=== PATIENT | female | born 1970 | race Caucasian/White ===

== ENCOUNTER 2022-04-02 17:50 | Emergency (ER) ==
[~2022-04-02] VITALS: Ht 160 cm; Wt 54.5 kg
== END 2022-04-02 19:01 | disposition home or self-care (01) ==
LOC: COL.ER 17:50
DX: Z45.2 Encounter for adjustment and management of vascular access device (principal); F17.200 Nicotine dependence, unspecified, uncomplicated; Z28.310 Unvaccinated for COVID-19

== ENCOUNTER 2022-04-12 14:18 | Emergency (ER) | payer MEDICARE, MEDICAID ==
[~2022-04-12] VITALS: Ht 160 cm; Wt 54.5 kg
[2022-04-12 16:18] LABS: BASO % 0.4 % (0.0-2.0); EOS # 0.3 K/mm3 (0.0-0.7); EOS % 4.4 % (0.0-4.0); GRAN # 4.1 K/mm3 (1.4-6.5); GRAN % 53.1 % (42.2-75.2); HEMATOCRIT 39.8 % (37.0-47.0); HEMOGLOBIN 13.9 g/dl (12.5-16.0); LYMPH # 2.5 K/mm3 (1.2-3.4); LYMPH % 31.7 % (20.0-51.0); MEAN CELL VOLUME 84 fl (80.0-100.0); MEAN CORPUSCULAR HEMOGLOBIN 29 pg (27-31); MEAN CORPUSCULAR HGB CONC 35 g/dl (33.0-37.0); MEAN PLATELET VOLUME 10.2 fl (7.4-10.4); MONO # 0.8 K/mm3 (0.1-0.6); MONO % 10.3 % (1.7-9.3); PLATELET COUNT 385 K/mm3 (130-400); RED BLOOD COUNT 4.72 M/mm3 (4.10-5.30); REDCELL DISTRIBUTION WIDTH-CV 13.1 % (11.5-14.5)
[2022-04-12 16:36] LABS: ALBUMIN 3.5 gm/dL (3.5-5.0); BILIRUBIN,TOTAL 0.4 mg/dL (0.2-1.2); CALCIUM 9.4 mg/dL (8.4-10.2); CREATININE, serum 1.17 mg/dL (0.57-1.11); POTASSIUM 3.6 mmol/L (3.5-4.5); TOTAL PROTEIN 7.6 gm/dL (6.2-8.1)
[2022-04-12 16:56] LABS: TSH w REFLEX 4.276 uIU/mL (0.350-4.940)
[2022-04-12 17:10] VITALS: BP 96/73; PULSE 88; TEMP 98.4
== END 2022-04-12 17:10 | disposition home or self-care (01) ==
LOC: COL.ER 14:18
PROVIDERS: Emergency Medicine
DX: R10.13 Epigastric pain (principal); F17.200 Nicotine dependence, unspecified, uncomplicated; Z90.49 Acquired absence of other specified parts of digestive tract; Z20.822 Contact with and (suspected) exposure to COVID-19; Z28.310 Unvaccinated for COVID-19
CPT/HCPCS: J1200; J1720; J1790; J7120

== ENCOUNTER 2022-05-11 17:03 | Emergency (ER) | payer MEDICARE, MEDICAID ==
[~2022-05-11] VITALS: Ht 157.5 cm; Wt 50.9 kg
[2022-05-11 17:17] VITALS: TEMP 98.5
[2022-05-11 18:34] LABS: BASO # 0.1 K/mm3 (0.0-0.2); BASO % 0.6 % (0.0-2.0); EOS # 0.2 K/mm3 (0.0-0.7); EOS % 2.6 % (0.0-4.0); GRAN # 4.5 K/mm3 (1.4-6.5); GRAN % 53.7 % (42.2-75.2); HEMATOCRIT 37.1 % (37.0-47.0); HEMOGLOBIN 12.9 g/dl (12.5-16.0); LYMPH # 2.8 K/mm3 (1.2-3.4); LYMPH % 33.8 % (20.0-51.0); MEAN CELL VOLUME 85 fl (80.0-100.0); MEAN CORPUSCULAR HEMOGLOBIN 30 pg (27-31); MEAN CORPUSCULAR HGB CONC 35 g/dl (33.0-37.0); MONO # 0.8 K/mm3 (0.1-0.6); MONO % 9.2 % (1.7-9.3); PLATELET COUNT 412 K/mm3 (130-400); RED BLOOD COUNT 4.36 M/mm3 (4.10-5.30); REDCELL DISTRIBUTION WIDTH-CV 13.4 % (11.5-14.5)
[2022-05-11 18:50] LABS: ALBUMIN 3.6 gm/dL (3.5-5.0); ALKALINE PHOSPHATASE 64 U/L (40-150); ANION GAP 9 mmol/L (7-16); AST,SGOT 13 U/L (5-34); BILIRUBIN,TOTAL 0.3 mg/dL (0.2-1.2); BLOOD UREA NITROGEN 13 mg/dL (10-20); CALCIUM 9.2 mg/dL (8.4-10.2); CARBON DIOXIDE 25 mmol/L (22-29); CHLORIDE 101 mmol/L (98-107); CREATININE, serum 1.19 mg/dL (0.57-1.11); GLUCOSE 82 mg/dL (70-99); LIPASE 42 U/L (8-78); SODIUM 135 mmol/L (136-145); TOTAL PROTEIN 7.4 gm/dL (6.2-8.1)
[2022-05-11 18:51] LABS: ALANINE AMINOTRANSFERASE < 6 U/L (0-55)
[2022-05-11 18:56] LABS: TROPONIN-I 0.013 ng/mL (0.00-0.033)
[2022-05-11 19:02] LABS: COLLECTION METHOD CLEAN CATCH
[2022-05-11] MEDS ORDERED: REGLAN 10MG10 MG/TAB PO (19:07)
[2022-05-11 19:09] LABS: URINE APPEARANCE Clear (CLEAR/HAZY); URINE BLOOD Negative (NEGATIVE); URINE COLOR Yellow (YELLOW); URINE GLUCOSE Negative (NEGATIVE); URINE KETONE Negative (NEGATIVE); URINE NITRATE Negative (NEGATIVE); URINE PROTEIN(semi-quant) Negative (NEGATIVE); URINE UROBILINOGEN 0.2 E.U/dL (0.2-1.0)
[2022-05-11 19:21] LABS: MUCOUS Present (NOT PRESENT); SQUAMOUS EPITHELIAL None Seen /hpf (0-10); URINE BACTERIA None Seen /hpf (NONE SEEN)
[2022-05-11 19:43] VITALS: BP 90/55; PULSE 81
== END 2022-05-11 19:43 | disposition home or self-care (01) ==
LOC: COL.ER 17:03
PROVIDERS: Nurse Practitioner Primary Care
DX: R10.11 Right upper quadrant pain (principal); F17.210 Nicotine dependence, cigarettes, uncomplicated; Z90.49 Acquired absence of other specified parts of digestive tract; Z20.822 Contact with and (suspected) exposure to COVID-19; Z28.310 Unvaccinated for COVID-19
CPT/HCPCS: J1200; J2060; J2270; J7030

== ENCOUNTER 2022-07-01 12:44 | Emergency (ER) | payer MEDICARE, MEDICAID ==
[~2022-07-01] VITALS: Ht 157.5 cm; Wt 49.1 kg
[~2022-07-01 12:44] MED LIST: REGLAN 10MG10 MG/TAB PO
[2022-07-01 12:51] VITALS: TEMP 97.1
[2022-07-01 14:44] LABS: BASO % 0.6 % (0.0-2.0); EOS # 0.3 K/mm3 (0.0-0.7); EOS % 3.7 % (0.0-4.0); GRAN % 42.3 % (42.2-75.2); HEMATOCRIT 37.3 % (37.0-47.0); HEMOGLOBIN 12.7 g/dl (12.5-16.0); LYMPH # 3.1 K/mm3 (1.2-3.4); MEAN CELL VOLUME 86 fl (80.0-100.0); MEAN CORPUSCULAR HEMOGLOBIN 29 pg (27-31); MEAN CORPUSCULAR HGB CONC 34 g/dl (33.0-37.0); MEAN PLATELET VOLUME 10.6 fl (7.4-10.4); MONO # 0.7 K/mm3 (0.1-0.6); MONO % 10.3 % (1.7-9.3); PLATELET COUNT 298 K/mm3 (130-400); RED BLOOD COUNT 4.34 M/mm3 (4.10-5.30); REDCELL DISTRIBUTION WIDTH-CV 13.8 % (11.5-14.5)
[2022-07-01 14:59] LABS: ALBUMIN 3.6 gm/dL (3.5-5.0); ALKALINE PHOSPHATASE 54 U/L (40-150); ANION GAP 9 mmol/L (7-16); AST,SGOT 17 U/L (5-34); BLOOD UREA NITROGEN 10 mg/dL (10-20); CALCIUM 8.9 mg/dL (8.4-10.2); CARBON DIOXIDE 27 mmol/L (22-29); CHLORIDE 100 mmol/L (98-107); CREATININE, serum 1.23 mg/dL (0.57-1.11); GLUCOSE 90 mg/dL (70-99); POTASSIUM 3.6 mmol/L (3.5-4.5); SODIUM 136 mmol/L (136-145); TOTAL PROTEIN 7.3 gm/dL (6.2-8.1)
[2022-07-01 15:00] LABS: ALANINE AMINOTRANSFERASE < 6 U/L (0-55)
[2022-07-01 15:08] LABS: BILIRUBIN,TOTAL 0.3 mg/dL (0.2-1.2)
[2022-07-01] MEDS ORDERED: FLORINEF ACETA0.1 MG PO (15:28)
[2022-07-01] MEDS ORDERED: CYMBALTA 60MG60 MG PO (15:29)
[2022-07-01] MEDS ORDERED: TIROSINT125 MC1 PO (15:29)
[2022-07-01] MEDS ORDERED: CORTEF 10MG TAB10 MG PO (15:33)
[2022-07-01] MEDS ORDERED: PROMETHAZINE12.5 M5 PO (15:58)
[2022-07-01 16:22] VITALS: BP 98/76; PULSE 84
[2022-07-05] MEDS ORDERED: CORTEF 20MG TAB20 MG PO (16:51)
[2022-07-07] MEDS ORDERED: PROTONIX 40MG T40 MG PO (09:18)
== END 2022-07-01 16:22 | disposition home or self-care (01) ==
LOC: COL.ER 12:44
PROVIDERS: Physician Assistant
DX: A08.4 Viral intestinal infection, unspecified (principal); F17.210 Nicotine dependence, cigarettes, uncomplicated; Z28.310 Unvaccinated for COVID-19; Z20.822 Contact with and (suspected) exposure to COVID-19; Z90.49 Acquired absence of other specified parts of digestive tract; Z88.8 Allergy status to other drugs, medicaments and biological substances

== ENCOUNTER 2022-11-20 15:08 | Emergency (ER) | payer MEDICARE, MEDICAID ==
[~2022-11-20] VITALS: Ht 157.5 cm; Wt 48.8 kg
[~2022-11-20 15:08] MED LIST changes: +ASPIRIN 81M81 MG/TA2 PO; +CORTEF 10MG TAB10 MG PO; +CORTEF 20MG TAB20 MG PO; +CYMBALTA 60MG60 MG PO; +DOXYCYCLINE 10100 MG PO; +FLORINEF ACETA0.1 MG PO; +PHENERGAN 25 TA25 MG PO; +PROMETHAZINE12.5 M5 PO; +PROTONIX 40MG T40 MG PO; +TIROSINT125 MC1 PO
[2022-11-20 15:38] VITALS: BP 140/89; PULSE 103; TEMP 98.1
[2022-11-20 17:09] LABS: BASO % 0.4 % (0.0-2.0); EOS # 0.3 K/mm3 (0.0-0.7); EOS % 2.7 % (0.0-4.0); GRAN # 5.9 K/mm3 (1.4-6.5); GRAN % 64.5 % (42.2-75.2); HEMATOCRIT 38.5 % (37.0-47.0); HEMOGLOBIN 13.1 g/dl (12.5-16.0); LYMPH # 2.5 K/mm3 (1.2-3.4); LYMPH % 27.3 % (20.0-51.0); MEAN CELL VOLUME 84 fl (80.0-100.0); MEAN CORPUSCULAR HEMOGLOBIN 29 pg (27-31); MEAN CORPUSCULAR HGB CONC 34 g/dl (33.0-37.0); MEAN PLATELET VOLUME 9.6 fl (7.4-10.4); MONO # 0.5 K/mm3 (0.1-0.6); MONO % 4.9 % (1.7-9.3); PLATELET COUNT 389 K/mm3 (130-400); RED BLOOD COUNT 4.57 M/mm3 (4.10-5.30); REDCELL DISTRIBUTION WIDTH-CV 14.9 % (11.5-14.5)
[2022-11-20 17:27] LABS: ALBUMIN 3.5 gm/dL (3.5-5.0); BILIRUBIN,TOTAL 0.3 mg/dL (0.2-1.2); C-REACTIVE PROTEIN 0.16 mg/dL (0.00-0.50); CALCIUM 8.7 mg/dL (8.4-10.2); CREATININE, serum 1.07 mg/dL (0.57-1.11); POTASSIUM 4.1 mmol/L (3.5-4.5)
[2022-11-20 18:13] LABS: COLLECTION METHOD CLEAN CATCH
[2022-11-20 18:15] LABS: URINE APPEARANCE Clear (CLEAR/HAZY); URINE COLOR Yellow (YELLOW)
[2022-11-20 18:16] LABS: URINE BLOOD Negative (NEGATIVE); URINE GLUCOSE Negative (NEGATIVE); URINE KETONE Negative (NEGATIVE); URINE NITRATE Negative (NEGATIVE); URINE PROTEIN(semi-quant) Negative (NEGATIVE); URINE UROBILINOGEN 0.2 E.U/dL (0.2-1.0)
[2022-11-20 18:17] LABS: SQUAMOUS EPITHELIAL None Seen /hpf (0-10); URINE BACTERIA None Seen /hpf (NONE SEEN); URINE RBC 0-2 /hpf (0-2)
== END 2022-11-20 18:27 | disposition left against medical advice (07) ==
LOC: COL.ER 15:08
PROVIDERS: Family Medicine
DX: R51.9 Headache, unspecified (principal); E27.1 Primary adrenocortical insufficiency; F17.200 Nicotine dependence, unspecified, uncomplicated; Z86.73 Personal history of transient ischemic attack (TIA), and cerebral infarction without residual deficits; Z28.310 Unvaccinated for COVID-19
CPT/HCPCS: J1644; J2550; J2930; J7120

== ENCOUNTER 2022-12-09 07:18 | Day surgery (SDC) | payer MEDICARE, MEDICAID ==
[~2022-12-09] VITALS: Ht 157.5 cm; Wt 50.0 kg
[2022-12-09 07:47] VITALS: BP 127/67; PULSE 96; TEMP 98.4
[2022-12-09] MEDS ORDERED: NORCO 325 MG-51 TAB PO (09:15)
[2022-12-09] MEDS ORDERED: CEPHALEXIN500 M1 PO (09:15)
--- NOTE | 2022-12-09 10:29 | NUR ---
Initial visit; Patient, her son and her mother thanked [employer] Director for offering prayer for Marilyn prior to her surgical procedure. [employer] Director offered God's blessings for a successful procedure and a rapid and thorough recovery.
[2022-12-09 10:40] VITALS: BP 95/60; PULSE 76; TEMP 98.7
--- NOTE | 2022-12-09 10:40 | NUR ---
1040 PATIENT RETURNS TO ROOM 7 VIA CART. PATIENT IS ALERT AND ORIENTED. RESPIRATIONS EVEN AND UNLABORED, ON 2LPM VIA NC. VITAL SIGNS OBTAINED. PATIENT IS COMPLAINING OF SOME PAIN, BUT RCVD PRN IV PAIN MEDS IN PACU. PATIENT STATES HER PAIN IS A 3/10 AND IMPROVING. PATIENT HAS ALEXIS WRAP TO RIGHT KNEE, CDI. RLE IS ELEVATED ON PILLOW WITH ICE PRESENT. PEDAL PULSES ARE STRONG BILATERALLY. PATIENT REQUESTED A PEPSI, MUFFIN AND CHOCOLATE PUDDING. NO DIFFICULTIES SWALLOWING. PATIENT SON AND MOTHER IN ROOM. 1120 THIS NURSE REVIEWED DISCHARGE INSTRUCTIONS WITH PATIENT AND PATIENT FAMILY. BOTH VERBALIZED UNDERSTANDING. 1132 TAPAN CASTANEDA DE-ACCESSED PORT FROM LEFT CHEST. 1145 PATIENT DISCHARGES FROM UNIT VIA WHEELCHAIR IN STABLE CONDITION.
[2022-12-09 10:55] VITALS: BP 91/53; PULSE 78
[2022-12-09 11:10] VITALS: BP 93/62; PULSE 84
[2022-12-09 11:18] VITALS: TEMP 98.7
[2022-12-09 11:25] VITALS: BP 92/62; PULSE 88
--- NOTE | 2022-12-09 11:33 | NUR ---
Left chest portacath de-accessed for discharge, 500 units heparin given per order, needle intact upon removal. Pt tolerated removal well. Bandaid applied to site.
== END 2022-12-09 11:45 | disposition home or self-care (01) ==
LOC: SDCO 07:18
DX: T84.84XA Pain due to internal orthopedic prosthetic devices, implants and grafts, initial encounter (principal); Y79.3 Surgical instruments, materials and orthopedic devices (including sutures) associated with adverse incidents; M23.251 Derangement of posterior horn of lateral meniscus due to old tear or injury, right knee; F17.210 Nicotine dependence, cigarettes, uncomplicated; Z28.310 Unvaccinated for COVID-19
CPT/HCPCS: J0690; J1100; J1170; J1644; J1720; J2405; J2704; J3010; J7120

== ENCOUNTER 2023-05-29 20:22 | Observation (INO) | payer MEDICARE, MEDICAID ==
[~2023-05-29] VITALS: Ht 157.5 cm; Wt 52.2 kg
[~2023-05-29 20:22] MED LIST changes: +ANTI-DIARRHEAL2 MG PO; +BENTYL 20MG20 MG/TAB PO; +CEPHALEXIN500 M1 PO; +ELIQUIS 5MG PO; +NORCO 325 MG-51 TAB PO; +PERCOCET 325 MG1 TA2 PO; +PHENERGAN25 MG RC
[2023-05-29 21:00] LABS: BASO # 0.1 K/mm3 (0.0-0.2); BASO % 0.8 % (0.0-2.0); EOS # 0.6 K/mm3 (0.0-0.7); EOS % 6.5 % (0.0-4.0); GRAN % 44.5 % (42.2-75.2); HEMATOCRIT 41.8 % (37.0-47.0); HEMOGLOBIN 13.9 g/dl (12.5-16.0); LYMPH # 3.4 K/mm3 (1.2-3.4); LYMPH % 37.9 % (20.0-51.0); MEAN CELL VOLUME 87 fl (80.0-100.0); MEAN CORPUSCULAR HEMOGLOBIN 29 pg (27-31); MEAN CORPUSCULAR HGB CONC 33 g/dl (33.0-37.0); MEAN PLATELET VOLUME 10.2 fl (7.4-10.4); MONO # 0.9 K/mm3 (0.1-0.6); MONO % 10.1 % (1.7-9.3); PLATELET COUNT 492 K/mm3 (130-400); RED BLOOD COUNT 4.78 M/mm3 (4.10-5.30); REDCELL DISTRIBUTION WIDTH-CV 13.4 % (11.5-14.5)
[2023-05-29 21:14] LABS: ALBUMIN 3.7 gm/dL (3.5-5.0); BILIRUBIN,TOTAL 0.5 mg/dL (0.2-1.2); CALCIUM 9.8 mg/dL (8.4-10.2); CREATININE, serum 1.32 mg/dL (0.57-1.11); POTASSIUM 3.8 mmol/L (3.5-4.5); TOTAL PROTEIN 7.9 gm/dL (6.2-8.1)
[2023-05-29 22:35] LABS: COLLECTION METHOD CLEAN CATCH
[2023-05-29 22:55] LABS: URINE APPEARANCE Clear (CLEAR/HAZY); URINE BACTERIA Rare /hpf (NONE SEEN); URINE BLOOD Negative (NEGATIVE); URINE COLOR Yellow (YELLOW); URINE GLUCOSE Negative (NEGATIVE); URINE KETONE Negative (NEGATIVE); URINE NITRATE Negative (NEGATIVE); URINE PROTEIN(semi-quant) Negative (NEGATIVE); URINE UROBILINOGEN 0.2 E.U/dL (0.2-1.0)
[2023-05-29 22:56] LABS: SQUAMOUS EPITHELIAL 0-2 /hpf (0-10); URINE RBC 0-2 /hpf (0-2)
[2023-05-29 23:26] VITALS: BP 100/56; PULSE 89; TEMP 98.6
[2023-05-29] MEDS ORDERED: DESYREL DIVIDO150 M1 PO (23:45)
[2023-05-29] MEDS ORDERED: CORTEF 10MG TAB10 MG PO (23:46)
[2023-05-29] MEDS ORDERED: SYNTHROID0.125 MG/T PO (23:47)
[2023-05-30] VITALS (12 sets, daily range): BP systolic 82–102; BP diastolic 48–64; PULSE 59–85; TEMP 97.9–98.7
--- NOTE | 2023-05-30 05:10 | NUR ---
PT ARRIVED TO THE MEDICAL FLOOR AROUND 2330HRS TO ROOM 351. PT A&O X 4, VSS, O2 RA. PT COMPLAINED OF NAUSEA. PT GIVEN PHENERGAN FOR NAUSEA. PT FELT THE PHENERAGN HELPED. PT DENIED GENERAL PAIN, CHEST PAIN, PALPITATIONS, SOB, VOMITING, DIARRHEA OR DIZZINESS. ADMISSIONS ASSESSMENT AND MED REC COMPLETE. PT ORIENTED TO ROOM AND HOSPITALIST POLICY. ALL QUESTIONS AND CONCERNS ADDRESSED. PT EXPRESSED NO ADDITIONAL NEEDS AT THE TIME. CALL LIGHT WITHIN REACH.
[2023-05-30 07:17] LABS: BASO % 0.8 % (0.0-2.0); EOS % 0.2 % (0.0-4.0); GRAN # 3.7 K/mm3 (1.4-6.5); GRAN % 74.9 % (42.2-75.2); HEMATOCRIT 35.3 % (37.0-47.0); LYMPH % 21.1 % (20.0-51.0); MEAN CELL VOLUME 86 fl (80.0-100.0); MEAN CORPUSCULAR HEMOGLOBIN 29 pg (27-31); MEAN CORPUSCULAR HGB CONC 34 g/dl (33.0-37.0); MEAN PLATELET VOLUME 10.2 fl (7.4-10.4); MONO # 0.1 K/mm3 (0.1-0.6); MONO % 2.6 % (1.7-9.3); PLATELET COUNT 445 K/mm3 (130-400); RED BLOOD COUNT 4.09 M/mm3 (4.10-5.30); REDCELL DISTRIBUTION WIDTH-CV 13.4 % (11.5-14.5)
[2023-05-30 07:31] LABS: CALCIUM 8.8 mg/dL (8.4-10.2); CREATININE, serum 1.31 mg/dL (0.57-1.11); POTASSIUM 4.5 mmol/L (3.5-4.5)
--- NOTE | 2023-05-30 08:30 | NUR ---
Patient is resting in bed, complains of pain in her abdomen. Alert and oriented x 4, VSS. Assessment completed,meds rpvoded. Pain med to be provided. No further needs at this time. Call light within reach.
--- NOTE | 2023-05-30 10:29 | NUR ---
Industrial Maintenance Repairer Helper met with patient to discuss discharge planning. Patient lives in [place] with her mother, Antonieta and her children. Patient sees Dr. Nisha Giles for primary care and obtains medications from [facility] with no difficulties. Patient has a walker at home that she obtained after a knee replacement, but she normally does not use it. In fact, she remarked it's packed away in her garage. Patient is independent with ADLS and plans to return home at time of discharge. Patient has DPOA-HC in chart that designates her son, Fly (ph#[phone]) as primary agent. Discharge Plan: Home
--- NOTE | 2023-05-30 19:03 | NUR ---
Pt continues with soft BP, still getting NS 125ML/HR. Received a bolus of 500. She just reported nausea and asked for phenergan, provided. Aware of being NPO after midnight for scheduled procedure. Consent signed in chart. Report given to night RN.
[2023-05-31] VITALS (11 sets, daily range): BP systolic 92–120; BP diastolic 58–67; PULSE 64–86; TEMP 98.1–98.5
[2023-05-31 06:23] LABS: BASO % 0.2 % (0.0-2.0); EOS % 0.1 % (0.0-4.0); GRAN # 8.6 K/mm3 (1.4-6.5); GRAN % 74.3 % (42.2-75.2); LYMPH # 1.9 K/mm3 (1.2-3.4); LYMPH % 16.4 % (20.0-51.0); MEAN CELL VOLUME 88 fl (80.0-100.0); MEAN CORPUSCULAR HGB CONC 34 g/dl (33.0-37.0); MEAN PLATELET VOLUME 10.6 fl (7.4-10.4); MONO % 8.5 % (1.7-9.3); PLATELET COUNT 357 K/mm3 (130-400); RED BLOOD COUNT 3.15 M/mm3 (4.10-5.30); REDCELL DISTRIBUTION WIDTH-CV 14.3 % (11.5-14.5)
[2023-05-31 06:33] LABS: HEMATOCRIT 27.7 % (37.0-47.0); HEMOGLOBIN 9.3 g/dl (12.5-16.0); MEAN CORPUSCULAR HEMOGLOBIN 30 pg (27-31)
[2023-05-31 06:42] LABS: CALCIUM 7.8 mg/dL (8.4-10.2); CREATININE, serum 1.09 mg/dL (0.57-1.11); POTASSIUM 3.8 mmol/L (3.5-4.5)
--- NOTE | 2023-05-31 06:50 | NUR ---
awake resting in bed, bedside shift report received from TAPAN Mancuso
--- NOTE | 2023-05-31 07:50 | NUR ---
c/o abd pain 04/01, medicated with morphine 2mg, full assessment comopleted, see interventions for further info, denies further needs at this time, reminded she is to have nothing to eat or drink, verbalizes understanding
--- NOTE | 2023-05-31 10:11 | NUR ---
bedside report given via ticket to ride to TAPAN Walden from endoscopy
--- NOTE | 2023-05-31 11:00 | NUR ---
returned to room per cart, was recived by Marlene PHELAN,
--- NOTE | 2023-05-31 11:15 | NUR ---
resting in bed, has requested a pepsi and this was provided after talking with Dr Amaya who gave the order, she denies needs
--- NOTE | 2023-05-31 12:30 | NUR ---
has tolerated pepsi and ordered clear liquids, will plan discharge
--- NOTE | 2023-05-31 13:03 | NUR ---
LEFT CHEST PORT HEPARINIZED AND DEACCESSED BY THIS RN AT THIS TIME.
[2023-05-31] MEDS ORDERED: REGLAN 5MG T5 MG/TAB PO (13:07)
--- NOTE | 2023-05-31 13:33 | NUR ---
discharge instructions given to patient, verbalizes understanding
--- NOTE | 2023-05-31 13:33 | NUR ---
discharged per WC
== END 2023-05-31 13:33 | disposition home or self-care (01) ==
LOC: COL.ER 20:22 → MEDICAL 22:37
PROVIDERS: Nurse Practitioner; Nurse Practitioner Family; ADMIT Hospitalist
DX: K29.50 Unspecified chronic gastritis without bleeding (principal); K31.89 Other diseases of stomach and duodenum; K31.84 Gastroparesis; E03.9 Hypothyroidism, unspecified; R53.1 Weakness; D68.61 Antiphospholipid syndrome; E27.1 Primary adrenocortical insufficiency; E27.40 Unspecified adrenocortical insufficiency; E27.2 Addisonian crisis; E87.1 Hypo-osmolality and hyponatremia; E87.8 Other disorders of electrolyte and fluid balance, not elsewhere classified; R91.1 Solitary pulmonary nodule; F32.9 Major depressive disorder, single episode, unspecified; F17.210 Nicotine dependence, cigarettes, uncomplicated; F32.A Depression, unspecified; Z79.899 Other long term (current) drug therapy; Z90.89 Acquired absence of other organs; Z79.82 Long term (current) use of aspirin; Z79.890 Hormone replacement therapy; Z86.718 Personal history of other venous thrombosis and embolism
CPT/HCPCS: C9113; G0378; J1200; J1644; J1650; J1720; J2270; J2550; J2704; J7030; J7040; J7120; Q9967

== ENCOUNTER → 2023-06-17 | Outpatient (CLI) | payer MEDICAID ==
[~2023-06-17] MED LIST changes: +DESYREL DIVIDO150 M1 PO; +REGLAN 5MG T5 MG/TAB PO; +SYNTHROID0.125 MG/T PO
== END ==
LOC: COL.RAD 06-07 07:30
DX: K21.9 Gastro-esophageal reflux disease without esophagitis (principal)
CPT/HCPCS: A9541-JZ

== ENCOUNTER 2023-09-15 19:43 | Emergency (ER) | payer MEDICAID ==
[~2023-09-15] VITALS: Ht 157.5 cm; Wt 52.3 kg
[2023-09-15 19:47] VITALS: TEMP 97.9
[2023-09-15] MEDS ORDERED: diphenhydrAMINE 50 MG/ML 1 ML VIAL IV ONE ×2 (20:00→21:15)
[2023-09-15] MEDS ORDERED: LORazepam 2 MG/ML 1 ML VIAL IV ONE ×2 (20:00→21:15)
[2023-09-15] MEDS ORDERED: NS 1,000 ML IV ONE (20:00)
[2023-09-15 20:20] LABS: BASO # 0.1 K/mm3 (0.0-0.2); BASO % 1.1 % (0.0-2.0); EOS # 0.7 K/mm3 (0.0-0.7); EOS % 11.5 % (0.0-4.0); GRAN # 2.2 K/mm3 (1.4-6.5); GRAN % 34.2 % (42.2-75.2); HEMOGLOBIN 12.4 g/dl (12.5-16.0); LYMPH # 2.5 K/mm3 (1.2-3.4); LYMPH % 39.5 % (20.0-51.0); MEAN CELL VOLUME 85 fl (80.0-100.0); MEAN CORPUSCULAR HEMOGLOBIN 28 pg (27-31); MEAN CORPUSCULAR HGB CONC 34 g/dl (33.0-37.0); MEAN PLATELET VOLUME 9.5 fl (7.4-10.4); MONO # 0.8 K/mm3 (0.1-0.6); MONO % 13.4 % (1.7-9.3); PLATELET COUNT 489 K/mm3 (130-400); RED BLOOD COUNT 4.36 M/mm3 (4.10-5.30); REDCELL DISTRIBUTION WIDTH-CV 13.6 % (11.5-14.5)
[2023-09-15 20:23] LABS: HEMATOCRIT 36.9 % (37.0-47.0)
[2023-09-15 20:36] LABS: ALBUMIN 3.3 gm/dL (3.5-5.0); ALKALINE PHOSPHATASE 61 U/L (40-150); ANION GAP 10 mmol/L (7-16); AST,SGOT 14 U/L (5-34); BILIRUBIN,TOTAL 0.3 mg/dL (0.2-1.2); BLOOD UREA NITROGEN 12 mg/dL (10-20); C-REACTIVE PROTEIN 0.96 mg/dL (0.00-0.50); CARBON DIOXIDE 25 mmol/L (22-29); CHLORIDE 103 mmol/L (98-107); GLUCOSE 85 mg/dL (70-99); LIPASE 36 U/L (8-78); POTASSIUM 3.6 mmol/L (3.5-4.5); SODIUM 138 mmol/L (136-145)
[2023-09-15 20:38] LABS: ALANINE AMINOTRANSFERASE < 6 U/L (0-55)
[2023-09-15] MEDS ORDERED: Home Promethazine 25 MG #2 TAB/PACK PO ONE (21:15)
[2023-09-15] MEDS ORDERED: methylPREDNISolone Sod Succ 125 MG/2 ML VIAL IV ONE (21:15)
[2023-09-15] MEDS ORDERED: PHENERGAN 25 TA25 MG PO (21:45)
[2023-09-15 22:17] VITALS: BP 109/71; PULSE 82
== END 2023-09-15 22:17 | disposition home or self-care (01) ==
LOC: COL.ER 19:43
PROVIDERS: Emergency Medicine
DX: E27.1 Primary adrenocortical insufficiency (principal); D75.839 Thrombocytosis, unspecified; F17.210 Nicotine dependence, cigarettes, uncomplicated; Z88.8 Allergy status to other drugs, medicaments and biological substances
CPT/HCPCS: J1200; J2060; J2930; J7030

== ENCOUNTER 2023-09-16 15:37 | Emergency (ER) | payer MEDICAID ==
[~2023-09-16] VITALS: Ht 157.5 cm; Wt 52.3 kg
[2023-09-16 15:46] VITALS: TEMP 97.9
[2023-09-16] MEDS ORDERED: NS 1,000 ML IV ONE (16:15)
[2023-09-16] MEDS ORDERED: LORazepam 2 MG/ML 1 ML VIAL IV ONE (16:15)
[2023-09-16] MEDS ORDERED: diphenhydrAMINE 50 MG/ML 1 ML VIAL IV ONE (16:15)
[2023-09-16] MEDS ORDERED: Morphine 4 MG/ML VIAL IV ONE ×3 (16:15→18:45)
[2023-09-16 16:36] LABS: BASO % 0.1 % (0.0-2.0); EOS % 0.1 % (0.0-4.0); GRAN # 13.6 K/mm3 (1.4-6.5); LYMPH # 1.2 K/mm3 (1.2-3.4); LYMPH % 7.7 % (20.0-51.0); MEAN CELL VOLUME 84 fl (80.0-100.0); MEAN CORPUSCULAR HEMOGLOBIN 29 pg (27-31); MEAN CORPUSCULAR HGB CONC 34 g/dl (33.0-37.0); MEAN PLATELET VOLUME 9.7 fl (7.4-10.4); MONO # 0.3 K/mm3 (0.1-0.6); MONO % 1.7 % (1.7-9.3); PLATELET COUNT 472 K/mm3 (130-400); RED BLOOD COUNT 4.18 M/mm3 (4.10-5.30); REDCELL DISTRIBUTION WIDTH-CV 13.7 % (11.5-14.5)
[2023-09-16 16:40] LABS: HEMATOCRIT 35.2 % (37.0-47.0)
[2023-09-16 16:56] LABS: ALBUMIN 3.4 gm/dL (3.5-5.0); ALKALINE PHOSPHATASE 53 U/L (40-150); ANION GAP 11 mmol/L (7-16); AST,SGOT 13 U/L (5-34); BILIRUBIN,TOTAL 0.3 mg/dL (0.2-1.2); BLOOD UREA NITROGEN 11 mg/dL (10-20); C-REACTIVE PROTEIN 0.56 mg/dL (0.00-0.50); CARBON DIOXIDE 21 mmol/L (22-29); CHLORIDE 107 mmol/L (98-107); CREATININE, serum 0.96 mg/dL (0.57-1.11); GLUCOSE 140 mg/dL (70-99); LIPASE 17 U/L (8-78); POTASSIUM 3.3 mmol/L (3.5-4.5); SODIUM 139 mmol/L (136-145); TOTAL PROTEIN 7.1 gm/dL (6.2-8.1)
[2023-09-16 16:59] LABS: ALANINE AMINOTRANSFERASE < 6 U/L (0-55)
[2023-09-16] MEDS ORDERED: Home LORazepam 0.5 MG #3 TAB/PACK PO ONE (18:30)
[2023-09-16 18:51] VITALS: BP 127/69; PULSE 99
== END 2023-09-16 18:51 | disposition home or self-care (01) ==
LOC: COL.ER 15:37
PROVIDERS: Emergency Medicine
DX: R11.2 Nausea with vomiting, unspecified (principal); R10.84 Generalized abdominal pain; E87.6 Hypokalemia; F17.210 Nicotine dependence, cigarettes, uncomplicated
CPT/HCPCS: J1200; J2060; J2270; J7030

== ENCOUNTER 2023-11-03 16:37 | Emergency (ER) | payer MEDICAID ==
[~2023-11-03] VITALS: Ht 157.5 cm; Wt 52.3 kg
[2023-11-03 16:54] VITALS: PULSE 85; TEMP 97.7
[2023-11-03] MEDS ORDERED: NS 1,000 ML IV ONE (17:15)
[2023-11-03 17:31] LABS: COLLECTION METHOD CLEAN CATCH
[2023-11-03 17:44] LABS: BASO # 0.1 K/mm3 (0.0-0.2); BASO % 0.8 % (0.0-2.0); EOS # 0.4 K/mm3 (0.0-0.7); EOS % 4.8 % (0.0-4.0); GRAN # 4.3 K/mm3 (1.4-6.5); GRAN % 47.3 % (42.2-75.2); HEMATOCRIT 42.5 % (37.0-47.0); HEMOGLOBIN 14.4 g/dl (12.5-16.0); LYMPH # 3.2 K/mm3 (1.2-3.4); LYMPH % 35.4 % (20.0-51.0); MEAN CELL VOLUME 86 fl (80.0-100.0); MEAN CORPUSCULAR HEMOGLOBIN 29 pg (27-31); MEAN CORPUSCULAR HGB CONC 34 g/dl (33.0-37.0); MEAN PLATELET VOLUME 10.1 fl (7.4-10.4); MONO % 11.4 % (1.7-9.3); PLATELET COUNT 453 K/mm3 (130-400); RED BLOOD COUNT 4.96 M/mm3 (4.10-5.30); REDCELL DISTRIBUTION WIDTH-CV 14.5 % (11.5-14.5)
[2023-11-03 17:46] LABS: URINE APPEARANCE CLEAR (CLEAR/HAZY); URINE BLOOD NEGATIVE (NEGATIVE); URINE COLOR YELLOW (YELLOW); URINE GLUCOSE NEGATIVE (NEGATIVE); URINE KETONE NEGATIVE (NEGATIVE); URINE NITRATE NEGATIVE (NEGATIVE); URINE PROTEIN(semi-quant) NEGATIVE (NEGATIVE); URINE UROBILINOGEN 0.2 E.U/dL (0.2-1.0)
[2023-11-03 18:12] LABS: ALBUMIN 3.8 gm/dL (3.5-5.0); BILIRUBIN,TOTAL 0.4 mg/dL (0.2-1.2); CALCIUM 9.8 mg/dL (8.4-10.2); CREATININE, serum 1.28 mg/dL (0.57-1.11); POTASSIUM 3.8 mmol/L (3.5-4.5); TOTAL PROTEIN 7.8 gm/dL (6.2-8.1)
[2023-11-03 18:29] VITALS: BP 101/87
== END 2023-11-03 18:31 | disposition left against medical advice (07) ==
LOC: COL.ER 16:37
PROVIDERS: Nurse Practitioner Primary Care
DX: R11.2 Nausea with vomiting, unspecified (principal); R10.84 Generalized abdominal pain; F17.200 Nicotine dependence, unspecified, uncomplicated
CPT/HCPCS: J1644; J2765; J7030

== ENCOUNTER 2023-12-15 21:19 | Emergency (ER) | payer MEDICAID ==
[~2023-12-15] VITALS: Ht 157.5 cm; Wt 53.2 kg
[~2023-12-15 21:19] MED LIST changes: +PHENERGAN50 MG/SUPP RC
[2023-12-15 21:25] VITALS: TEMP 97.9
[2023-12-15] MEDS ORDERED: NS 1,000 ML IV ONE (22:00)
[2023-12-15 22:11] LABS: BASO # 0.1 K/mm3 (0.0-0.2); BASO % 0.8 % (0.0-2.0); EOS # 0.5 K/mm3 (0.0-0.7); EOS % 5.6 % (0.0-4.0); GRAN # 4.1 K/mm3 (1.4-6.5); GRAN % 47.1 % (42.2-75.2); HEMATOCRIT 42.8 % (37.0-47.0); HEMOGLOBIN 14.6 g/dl (12.5-16.0); LYMPH # 3.1 K/mm3 (1.2-3.4); MEAN CELL VOLUME 86 fl (80.0-100.0); MEAN CORPUSCULAR HEMOGLOBIN 29 pg (27-31); MEAN CORPUSCULAR HGB CONC 34 g/dl (33.0-37.0); MONO % 11.3 % (1.7-9.3); PLATELET COUNT 400 K/mm3 (130-400); REDCELL DISTRIBUTION WIDTH-CV 13.9 % (11.5-14.5)
[2023-12-15] MEDS ORDERED: LORazepam 2 MG/ML 1 ML VIAL IV ONE (22:15)
[2023-12-15] MEDS ORDERED: diphenhydrAMINE 50 MG/ML 1 ML VIAL IV ONE (22:15)
[2023-12-15 22:26] LABS: ALBUMIN 3.7 g/dL (3.5-5.0); ALKALINE PHOSPHATASE 66 U/L (40-150); ANION GAP 12 mmol/L (7-16); AST,SGOT 19 U/L (5-34); BILIRUBIN,TOTAL 0.4 mg/dL (0.2-1.2); BLOOD UREA NITROGEN 12 mg/dL (10-20); CALCIUM 9.8 mg/dL (8.4-10.2); CHLORIDE 99 mEq/L (98-107); CREATININE, serum 1.39 mg/dL (0.57-1.11); GLUCOSE 87 mg/dL (70-99); LIPASE 29 U/L (8-78); POTASSIUM 3.7 mEq/L (3.5-4.5); SODIUM 135 mEq/L (136-145); TOTAL PROTEIN 7.9 g/dl (6.2-8.1)
[2023-12-15 22:30] LABS: ALANINE AMINOTRANSFERASE < 6 U/L (0-55)
[2023-12-15 22:37] LABS: TROPONIN-I < 0.010 ng/mL (0.00-0.033)
[2023-12-15 23:55] VITALS: BP 90/64; PULSE 90
== END 2023-12-16 00:02 | disposition home or self-care (01) ==
LOC: COL.ER 21:19
PROVIDERS: Emergency Medicine
DX: R11.2 Nausea with vomiting, unspecified (principal); R10.13 Epigastric pain; F17.200 Nicotine dependence, unspecified, uncomplicated
CPT/HCPCS: J1200; J1644; J2060; J7030

== ENCOUNTER 2023-12-27 12:31 | Emergency (ER) | payer MEDICAID ==
[~2023-12-27] VITALS: Ht 157.5 cm; Wt 53.2 kg
[2023-12-27] MEDS ORDERED: LORazepam 2 MG/ML 1 ML VIAL IV ONE (13:00)
[2023-12-27] MEDS ORDERED: diphenhydrAMINE 50 MG/ML 1 ML VIAL IV ONE (13:00)
[2023-12-27] MEDS ORDERED: NS 1,000 ML IV ONE (13:00)
[2023-12-27 15:13] LABS: BASO % 0.5 % (0.0-2.0); EOS # 0.4 K/mm3 (0.0-0.7); EOS % 5.2 % (0.0-4.0); GRAN # 4.4 K/mm3 (1.4-6.5); GRAN % 52.3 % (42.2-75.2); HEMATOCRIT 41.8 % (37.0-47.0); HEMOGLOBIN 14.3 g/dl (12.5-16.0); LYMPH # 2.4 K/mm3 (1.2-3.4); MEAN CELL VOLUME 85 fl (80.0-100.0); MEAN CORPUSCULAR HEMOGLOBIN 29 pg (27-31); MEAN CORPUSCULAR HGB CONC 34 g/dl (33.0-37.0); MEAN PLATELET VOLUME 10.5 fl (7.4-10.4); MONO % 12.4 % (1.7-9.3); PLATELET COUNT 336 K/mm3 (130-400); RED BLOOD COUNT 4.91 M/mm3 (4.10-5.30); REDCELL DISTRIBUTION WIDTH-CV 13.5 % (11.5-14.5)
[2023-12-27 15:39] LABS: ALBUMIN 3.2 g/dL (3.5-5.0); ALKALINE PHOSPHATASE 60 U/L (40-150); ANION GAP 10 mmol/L (7-16); AST,SGOT 15 U/L (5-34); BILIRUBIN,TOTAL 0.3 mg/dL (0.2-1.2); BLOOD UREA NITROGEN 12 mg/dL (10-20); CALCIUM 9.4 mg/dL (8.4-10.2); CHLORIDE 102 mEq/L (98-107); CREATININE, serum 1.11 mg/dL (0.57-1.11); GLUCOSE 74 mg/dL (70-99); LIPASE 25 U/L (8-78); POTASSIUM 4.4 mEq/L (3.5-4.5); SODIUM 133 mEq/L (136-145); TOTAL PROTEIN 7.1 g/dl (6.2-8.1)
[2023-12-27 15:40] LABS: ALANINE AMINOTRANSFERASE < 6 U/L (0-55)
[2023-12-27 15:45] LABS: TROPONIN-I < 0.010 ng/mL (0.00-0.033)
[2023-12-27] MEDS ORDERED: LR 1,000 ML IV ONE ×2 (15:45→18:00)
[2023-12-27 19:21] VITALS: BP 90/44; PULSE 90; TEMP 97.6
== END 2023-12-27 19:21 | disposition home or self-care (01) ==
LOC: COL.ER 12:31
PROVIDERS: Emergency Medicine
DX: R07.9 Chest pain, unspecified (principal); R11.2 Nausea with vomiting, unspecified; E86.0 Dehydration; R00.0 Tachycardia, unspecified
CPT/HCPCS: J1200; J2060; J7030; J7120

== ENCOUNTER 2023-12-28 16:20 | Emergency (ER) | payer MEDICAID ==
[~2023-12-28] VITALS: Ht 157.5 cm; Wt 53.2 kg
[2023-12-28 16:32] VITALS: TEMP 99
[2023-12-28] MEDS ORDERED: Morphine 4 MG/ML VIAL IV ONE (17:45)
[2023-12-28] MEDS ORDERED: Haloperidol Lactate 5 MG/ML VIAL IV ONE (17:45)
[2023-12-28] MEDS ORDERED: NS 1,000 ML IV ONE (17:45)
[2023-12-28 19:16] LABS: ALANINE AMINOTRANSFERASE < 6 U/L (0-55); ALBUMIN 2.9 g/dL (3.5-5.0); ALKALINE PHOSPHATASE 55 U/L (40-150); ANION GAP 7 mmol/L (7-16); AST,SGOT 13 U/L (5-34); BILIRUBIN,TOTAL 0.3 mg/dL (0.2-1.2); BLOOD UREA NITROGEN 8 mg/dL (10-20); CHLORIDE 100 mEq/L (98-107); CREATININE, serum 1.03 mg/dL (0.57-1.11); GLUCOSE 77 mg/dL (70-99); POTASSIUM 4.2 mEq/L (3.5-4.5); SODIUM 130 mEq/L (136-145); TOTAL PROTEIN 6.1 g/dl (6.2-8.1)
[2023-12-28 19:30] LABS: COLLECTION METHOD CLEAN CATCH
[2023-12-28 19:33] LABS: BASO % 0.5 % (0.0-2.0); EOS # 0.3 K/mm3 (0.0-0.7); EOS % 3.8 % (0.0-4.0); GRAN # 4.7 K/mm3 (1.4-6.5); GRAN % 55.3 % (42.2-75.2); LYMPH # 2.3 K/mm3 (1.2-3.4); LYMPH % 27.5 % (20.0-51.0); MEAN CELL VOLUME 84 fl (80.0-100.0); MEAN CORPUSCULAR HGB CONC 35 g/dl (33.0-37.0); MEAN PLATELET VOLUME 9.4 fl (7.4-10.4); MONO # 1.1 K/mm3 (0.1-0.6); MONO % 12.5 % (1.7-9.3); PLATELET COUNT 340 K/mm3 (130-400); RED BLOOD COUNT 3.81 M/mm3 (4.10-5.30); REDCELL DISTRIBUTION WIDTH-CV 13.7 % (11.5-14.5)
[2023-12-28 19:34] LABS: PH 5.5 (5.0-8.5); URINE APPEARANCE CLEAR (CLEAR/HAZY); URINE BLOOD NEGATIVE (NEGATIVE); URINE COLOR YELLOW (YELLOW); URINE GLUCOSE NEGATIVE (NEGATIVE); URINE KETONE NEGATIVE (NEGATIVE); URINE NITRATE NEGATIVE (NEGATIVE); URINE PROTEIN(semi-quant) NEGATIVE (NEGATIVE); URINE UROBILINOGEN 0.2 E.U/dL (0.2-1.0)
[2023-12-28 19:45] LABS: HEMOGLOBIN 11.2 g/dl (12.5-16.0); MEAN CORPUSCULAR HEMOGLOBIN 29 pg (27-31)
[2023-12-28 20:46] VITALS: BP 95/54; PULSE 86
== END 2023-12-28 20:50 | disposition home or self-care (01) ==
LOC: COL.ER 16:20
PROVIDERS: Personal Emergency Response Attendant
DX: R11.2 Nausea with vomiting, unspecified (principal); R10.9 Unspecified abdominal pain
CPT/HCPCS: J1630; J1644; J2270; J7030

== ENCOUNTER 2024-02-26 16:02 | Emergency (ER) | payer MEDICARE, MEDICAID ==
[~2024-02-26] VITALS: Ht 157.5 cm; Wt 53.3 kg
[2024-02-26] MEDS ORDERED: NS 1,000 ML IV ONE ×2 (16:30→19:30)
[2024-02-26] MEDS ORDERED: diphenhydrAMINE 50 MG/ML 1 ML VIAL IV ONE (16:45)
[2024-02-26] MEDS ORDERED: LORazepam 2 MG/ML 1 ML VIAL IV ONE (16:45)
[2024-02-26 17:46] LABS: ALBUMIN 3.1 g/dL (3.5-5.0); BILIRUBIN,TOTAL 0.3 mg/dL (0.2-1.2); C-REACTIVE PROTEIN 0.19 mg/dL (0.00-0.50); CALCIUM 7.9 mg/dL (8.4-10.2); CREATININE, serum 1.1 mg/dL (0.57-1.11); TOTAL PROTEIN 6.3 g/dl (6.2-8.1)
[2024-02-26] MEDS ORDERED: Morphine 4 MG/ML VIAL IV ONE (18:00)
[2024-02-26] MEDS ORDERED: HYDROmorphone 0.5 MG/0.5 ML SYRINGE IV ONE (18:30)
[2024-02-26] MEDS ORDERED: Pantoprazole 40 MG in NS 10 ML IV ONE (19:00)
[2024-02-26 19:23] LABS: BASO # 0.1 K/mm3 (0.0-0.2); BASO % 0.6 % (0.0-2.0); EOS # 0.3 K/mm3 (0.0-0.7); EOS % 4.4 % (0.0-4.0); GRAN # 3.9 K/mm3 (1.4-6.5); GRAN % 49.4 % (42.2-75.2); HEMATOCRIT 43.3 % (37.0-47.0); HEMOGLOBIN 14.3 g/dl (12.5-16.0); LYMPH # 2.8 K/mm3 (1.2-3.4); LYMPH % 35.9 % (20.0-51.0); MEAN CELL VOLUME 88 fl (80.0-100.0); MEAN CORPUSCULAR HEMOGLOBIN 29 pg (27-31); MEAN CORPUSCULAR HGB CONC 33 g/dl (33.0-37.0); MEAN PLATELET VOLUME 10.3 fl (7.4-10.4); MONO # 0.7 K/mm3 (0.1-0.6); MONO % 9.4 % (1.7-9.3); PLATELET COUNT 402 K/mm3 (130-400); RED BLOOD COUNT 4.95 M/mm3 (4.10-5.30); REDCELL DISTRIBUTION WIDTH-CV 14.4 % (11.5-14.5)
[2024-02-26] MEDS ORDERED: Home oxyCODONE/Acetaminophen 5/325 MG #4 TAB/PACK PO ONE (19:30)
[2024-02-26] MEDS ORDERED: Home Promethazine 25 MG #2 TAB/PACK PO ONE (19:30)
[2024-02-26] MEDS ORDERED: PERCOCET 325 MG1 TA2 PO (19:38)
[2024-02-26 21:05] VITALS: BP 93/56; PULSE 74; TEMP 96.8
== END 2024-02-26 21:05 | disposition home or self-care (01) ==
LOC: COL.ER 16:02
PROVIDERS: Emergency Medicine; Nurse Practitioner
DX: K31.84 Gastroparesis (principal); F17.200 Nicotine dependence, unspecified, uncomplicated
CPT/HCPCS: J1170; J1200; J2060; J2270; J2470; J7030

== ENCOUNTER 2024-02-27 18:03 | Emergency (ER) | payer MEDICAID ==
[~2024-02-27] VITALS: Ht 157.5 cm; Wt 51.8 kg
[2024-02-27 18:07] VITALS: TEMP 98.3
[2024-02-27] MEDS ORDERED: LORazepam 2 MG/ML 1 ML VIAL IV ONE (18:30)
[2024-02-27] MEDS ORDERED: diphenhydrAMINE 50 MG/ML 1 ML VIAL IV ONE (18:30)
[2024-02-27] MEDS ORDERED: NS 1,000 ML IV ONE (18:30)
[2024-02-27 19:02] LABS: BASO % 0.5 % (0.0-2.0); EOS # 0.4 K/mm3 (0.0-0.7); EOS % 5.1 % (0.0-4.0); GRAN # 4.6 K/mm3 (1.4-6.5); HEMATOCRIT 37.8 % (37.0-47.0); HEMOGLOBIN 12.5 g/dl (12.5-16.0); LYMPH # 2.8 K/mm3 (1.2-3.4); LYMPH % 32.5 % (20.0-51.0); MEAN CELL VOLUME 85 fl (80.0-100.0); MEAN CORPUSCULAR HEMOGLOBIN 28 pg (27-31); MEAN CORPUSCULAR HGB CONC 33 g/dl (33.0-37.0); MEAN PLATELET VOLUME 10.1 fl (7.4-10.4); MONO # 0.8 K/mm3 (0.1-0.6); MONO % 8.7 % (1.7-9.3); PLATELET COUNT 380 K/mm3 (130-400); RED BLOOD COUNT 4.43 M/mm3 (4.10-5.30); REDCELL DISTRIBUTION WIDTH-CV 14.3 % (11.5-14.5)
[2024-02-27 19:15] LABS: ALBUMIN 3.3 g/dL (3.5-5.0); BILIRUBIN,TOTAL 0.5 mg/dL (0.2-1.2); CALCIUM 8.8 mg/dL (8.4-10.2); CREATININE, serum 1.34 mg/dL (0.57-1.11); POTASSIUM 3.6 mEq/L (3.5-4.5); TOTAL PROTEIN 6.7 g/dl (6.2-8.1)
[2024-02-27] MEDS ORDERED: Morphine 4 MG/ML VIAL IV ONE (19:30)
[2024-02-27 20:11] VITALS: BP 92/65; PULSE 75
== END 2024-02-27 20:11 | disposition home or self-care (01) ==
LOC: COL.ER 18:03
PROVIDERS: Nurse Practitioner
DX: R11.2 Nausea with vomiting, unspecified (principal); F17.200 Nicotine dependence, unspecified, uncomplicated
CPT/HCPCS: J1200; J2060; J2270; J7030

== ENCOUNTER 2024-03-13 15:44 | Emergency (ER) | payer MEDICAID ==
[~2024-03-13] VITALS: Ht 157.5 cm; Wt 52.3 kg
[2024-03-13] MEDS ORDERED: NS 1,000 ML IV ONE (16:30)
[2024-03-13] MEDS ORDERED: diphenhydrAMINE 50 MG/ML 1 ML VIAL IV ONE ×2 (16:45→18:00)
[2024-03-13] MEDS ORDERED: LORazepam 2 MG/ML 1 ML VIAL IV ONE (16:45)
[2024-03-13 16:54] LABS: BASO # 0.1 K/mm3 (0.0-0.2); BASO % 1.1 % (0.0-2.0); EOS # 0.4 K/mm3 (0.0-0.7); EOS % 5.1 % (0.0-4.0); GRAN # 3.4 K/mm3 (1.4-6.5); GRAN % 42.4 % (42.2-75.2); HEMATOCRIT 42.4 % (37.0-47.0); HEMOGLOBIN 14.2 g/dl (12.5-16.0); LYMPH # 3.2 K/mm3 (1.2-3.4); LYMPH % 39.5 % (20.0-51.0); MEAN CELL VOLUME 85 fl (80.0-100.0); MEAN CORPUSCULAR HEMOGLOBIN 28 pg (27-31); MEAN CORPUSCULAR HGB CONC 34 g/dl (33.0-37.0); MEAN PLATELET VOLUME 10.6 fl (7.4-10.4); MONO # 0.9 K/mm3 (0.1-0.6); MONO % 11.3 % (1.7-9.3); PLATELET COUNT 300 K/mm3 (130-400); REDCELL DISTRIBUTION WIDTH-CV 14.2 % (11.5-14.5)
[2024-03-13 17:12] LABS: ALANINE AMINOTRANSFERASE 7 U/L (0-55); ALBUMIN 3.7 g/dL (3.5-5.0); ALKALINE PHOSPHATASE 72 U/L (40-150); ANION GAP 15 mmol/L (7-16); AST,SGOT 17 U/L (5-34); BILIRUBIN,TOTAL 0.4 mg/dL (0.2-1.2); BLOOD UREA NITROGEN 11 mg/dL (10-20); CALCIUM 9.8 mg/dL (8.4-10.2); CHLORIDE 98 mEq/L (98-107); CREATININE, serum 1.22 mg/dL (0.57-1.11); GLUCOSE 86 mg/dL (70-99); POTASSIUM 3.7 mEq/L (3.5-4.5); SODIUM 133 mEq/L (136-145); TOTAL PROTEIN 7.7 g/dl (6.2-8.1)
[2024-03-13 17:22] LABS: TROPONIN-I < 0.010 ng/mL (0.00-0.033)
[2024-03-13] MEDS ORDERED: Iohexol 300 - 100 ML VIAL IV ONE (18:06)
[2024-03-13] MEDS ORDERED: NS 100 ML IV ONE (18:07)
[2024-03-13] MEDS ORDERED: VANTIN 200200 MG/TAB PO (18:42)
[2024-03-13] MEDS ORDERED: DOXYCYCLINE HY100 MG PO (18:42)
[2024-03-13] MEDS ORDERED: cefTRIAXone 1 G in Water For Injection,Sterile 10 ML IV ONE (18:45)
[2024-03-13] MEDS ORDERED: Doxycycline Monohydrate 100 MG CAP PO ONE (18:45)
[2024-03-13 19:16] VITALS: BP 98/64; PULSE 96; TEMP 98.3
== END 2024-03-13 19:16 | disposition home or self-care (01) ==
LOC: COL.ER 15:44
PROVIDERS: Physician Assistant
DX: R07.2 Precordial pain (principal); J18.9 Pneumonia, unspecified organism; D68.61 Antiphospholipid syndrome; K21.9 Gastro-esophageal reflux disease without esophagitis; Z88.0 Allergy status to penicillin; Z79.82 Long term (current) use of aspirin; Z79.899 Other long term (current) drug therapy
CPT/HCPCS: J0696; J1200; J1644; J2060; J7030; Q9967

== ENCOUNTER 2024-04-03 16:01 | Emergency (ER) | payer MEDICAID ==
[~2024-04-03] VITALS: Ht 157.5 cm; Wt 50.9 kg
[~2024-04-03 16:01] MED LIST changes: +DOXYCYCLINE HY100 MG PO; +VANTIN 200200 MG/TAB PO
[2024-04-03 16:09] VITALS: BP 100/73; PULSE 122; TEMP 97.5
== END 2024-04-03 16:40 | disposition left against medical advice (07) ==
LOC: COL.ER 16:01
DX: R07.9 Chest pain, unspecified (principal); R11.10 Vomiting, unspecified

== ENCOUNTER 2024-04-03 20:48 | Emergency (ER) | payer MEDICAID ==
[~2024-04-03] VITALS: Ht 157.5 cm; Wt 50.9 kg
[2024-04-03 20:54] VITALS: TEMP 97.7
[2024-04-03 21:55] LABS: BASO # 0.1 K/mm3 (0.0-0.2); BASO % 0.5 % (0.0-2.0); EOS # 0.4 K/mm3 (0.0-0.7); EOS % 3.8 % (0.0-4.0); GRAN # 4.6 K/mm3 (1.4-6.5); GRAN % 44.2 % (42.2-75.2); HEMATOCRIT 44.6 % (37.0-47.0); HEMOGLOBIN 15.4 g/dl (12.5-16.0); LYMPH # 3.9 K/mm3 (1.2-3.4); LYMPH % 37.9 % (20.0-51.0); MEAN CELL VOLUME 83 fl (80.0-100.0); MEAN CORPUSCULAR HEMOGLOBIN 29 pg (27-31); MEAN CORPUSCULAR HGB CONC 35 g/dl (33.0-37.0); MEAN PLATELET VOLUME 9.4 fl (7.4-10.4); MONO # 1.4 K/mm3 (0.1-0.6); MONO % 13.2 % (1.7-9.3); PLATELET COUNT 435 K/mm3 (130-400); RED BLOOD COUNT 5.38 M/mm3 (4.10-5.30); REDCELL DISTRIBUTION WIDTH-CV 14.1 % (11.5-14.5)
[2024-04-03] MEDS ORDERED: NS 1,000 ML IV ONE ×2 (22:00→23:00)
[2024-04-03 22:23] LABS: TROPONIN-I < 0.010 ng/mL (0.00-0.033)
[2024-04-03 22:28] LABS: ALANINE AMINOTRANSFERASE 10 U/L (0-55); ALKALINE PHOSPHATASE 76 U/L (40-150); ANION GAP 15 mmol/L (7-16); AST,SGOT 25 U/L (5-34); BILIRUBIN,TOTAL 0.5 mg/dL (0.2-1.2); BLOOD UREA NITROGEN 20 mg/dL (10-20); CALCIUM 10.3 mg/dL (8.4-10.2); CHLORIDE 94 mEq/L (98-107); CREATININE, serum 1.68 mg/dL (0.57-1.11); GLUCOSE 91 mg/dL (70-99); LIPASE 31 U/L (8-78); POTASSIUM 4.4 mEq/L (3.5-4.5); SODIUM 130 mEq/L (136-145); TOTAL PROTEIN 8.4 g/dl (6.2-8.1)
[2024-04-03] MEDS ORDERED: diphenhydrAMINE 50 MG/ML 1 ML VIAL IV ONE (22:30)
[2024-04-03] MEDS ORDERED: LORazepam 2 MG/ML 1 ML VIAL IV ONE (22:30)
[2024-04-03] MEDS ORDERED: Promethazine 50 MG/ML 1 ML VIAL IM ONE (23:15)
[2024-04-04 00:48] VITALS: BP 114/93; PULSE 62
== END 2024-04-04 00:48 | disposition home or self-care (01) ==
LOC: COL.ER 20:48
PROVIDERS: Nurse Practitioner Primary Care
DX: R07.9 Chest pain, unspecified (principal); R11.2 Nausea with vomiting, unspecified; Z87.891 Personal history of nicotine dependence
CPT/HCPCS: J1200; J2060; J2550; J7030

== ENCOUNTER 2024-04-20 18:32 | Emergency (ER) | payer MEDICAID ==
[~2024-04-20] VITALS: Ht 157.5 cm; Wt 50.9 kg
[2024-04-20 18:39] VITALS: TEMP 98.2
[2024-04-20] MEDS ORDERED: droPERidol 2.5 MG/ML 2 ML VIAL IV ONE (19:00)
[2024-04-20] MEDS ORDERED: diphenhydrAMINE 50 MG/ML 1 ML VIAL IV ONE (19:00)
[2024-04-20] MEDS ORDERED: NS 1,000 ML IV ONE (19:00)
[2024-04-20] MEDS ORDERED: Promethazine 50 MG/ML 1 ML VIAL IM ONE (19:15)
[2024-04-20 19:38] LABS: BASO % 0.4 % (0.0-2.0); EOS # 0.2 K/mm3 (0.0-0.7); GRAN # 5.8 K/mm3 (1.4-6.5); GRAN % 62.5 % (42.2-75.2); HEMATOCRIT 41.1 % (37.0-47.0); HEMOGLOBIN 14.1 g/dl (12.5-16.0); LYMPH # 2.5 K/mm3 (1.2-3.4); LYMPH % 26.5 % (20.0-51.0); MEAN CELL VOLUME 85 fl (80.0-100.0); MEAN CORPUSCULAR HEMOGLOBIN 29 pg (27-31); MEAN CORPUSCULAR HGB CONC 34 g/dl (33.0-37.0); MEAN PLATELET VOLUME 9.8 fl (7.4-10.4); MONO # 0.8 K/mm3 (0.1-0.6); MONO % 8.3 % (1.7-9.3); PLATELET COUNT 432 K/mm3 (130-400); RED BLOOD COUNT 4.86 M/mm3 (4.10-5.30); REDCELL DISTRIBUTION WIDTH-CV 14.1 % (11.5-14.5)
[2024-04-20 19:53] LABS: COLLECTION METHOD CLEAN CATCH
[2024-04-20 19:58] LABS: URINE APPEARANCE CLEAR (CLEAR/HAZY); URINE BLOOD NEGATIVE (NEGATIVE); URINE COLOR YELLOW (YELLOW); URINE GLUCOSE NEGATIVE (NEGATIVE); URINE KETONE NEGATIVE (NEGATIVE); URINE NITRATE NEGATIVE (NEGATIVE); URINE PROTEIN(semi-quant) NEGATIVE (NEGATIVE); URINE UROBILINOGEN 0.2 E.U/dL (0.2-1.0)
[2024-04-20 19:58] LABS: ALANINE AMINOTRANSFERASE 6 U/L (0-55); ALKALINE PHOSPHATASE 68 U/L (40-150); ANION GAP 13 mmol/L (7-16); AST,SGOT 17 U/L (5-34); BILIRUBIN,TOTAL 0.4 mg/dL (0.2-1.2); BLOOD UREA NITROGEN 12 mg/dL (10-20); CHLORIDE 96 mEq/L (98-107); CREATININE, serum 1.27 mg/dL (0.57-1.11); GLUCOSE 87 mg/dL (70-99); LIPASE 28 U/L (8-78); POTASSIUM 4.5 mEq/L (3.5-4.5); SODIUM 131 mEq/L (136-145); TOTAL PROTEIN 8.6 g/dl (6.2-8.1)
[2024-04-20 20:09] LABS: TROPONIN-I < 0.010 ng/mL (0.00-0.033)
[2024-04-20] MEDS ORDERED: PROMETHAZINE12.5 M5 PO (20:14)
[2024-04-20 20:28] VITALS: BP 127/87; PULSE 89
== END 2024-04-20 20:28 | disposition home or self-care (01) ==
LOC: COL.ER 18:32
PROVIDERS: Physician Assistant
DX: R11.2 Nausea with vomiting, unspecified (principal)
CPT/HCPCS: J1200; J2550; J7030

== ENCOUNTER 2024-04-30 13:35 | Emergency (ER) | payer MEDICAID ==
[~2024-04-30] VITALS: Ht 157.5 cm; Wt 50.9 kg
[2024-04-30 13:41] VITALS: TEMP 98.9
[2024-04-30] MEDS ORDERED: NS 1,000 ML IV ONE (14:15)
[2024-04-30] MEDS ORDERED: Loperamide 2 MG CAP PO ONE (14:15)
[2024-04-30 14:22] LABS: BASO % 0.5 % (0.0-2.0); EOS # 0.2 K/mm3 (0.0-0.7); EOS % 2.1 % (0.0-4.0); GRAN # 4.4 K/mm3 (1.4-6.5); GRAN % 57.6 % (42.2-75.2); HEMATOCRIT 41.6 % (37.0-47.0); HEMOGLOBIN 14.3 g/dl (12.5-16.0); LYMPH # 2.2 K/mm3 (1.2-3.4); LYMPH % 28.8 % (20.0-51.0); MEAN CELL VOLUME 84 fl (80.0-100.0); MEAN CORPUSCULAR HEMOGLOBIN 29 pg (27-31); MEAN CORPUSCULAR HGB CONC 34 g/dl (33.0-37.0); MEAN PLATELET VOLUME 9.9 fl (7.4-10.4); MONO # 0.8 K/mm3 (0.1-0.6); MONO % 10.5 % (1.7-9.3); PLATELET COUNT 400 K/mm3 (130-400); RED BLOOD COUNT 4.95 M/mm3 (4.10-5.30); REDCELL DISTRIBUTION WIDTH-CV 14.2 % (11.5-14.5)
[2024-04-30 14:44] LABS: ALBUMIN 3.6 g/dL (3.5-5.0); BILIRUBIN,TOTAL 0.4 mg/dL (0.2-1.2); CALCIUM 8.9 mg/dL (8.4-10.2); CREATININE, serum 1.29 mg/dL (0.57-1.11); POTASSIUM 3.6 mEq/L (3.5-4.5); TOTAL PROTEIN 7.6 g/dl (6.2-8.1)
[2024-04-30] MEDS ORDERED: Promethazine 50 MG/ML 1 ML VIAL IM ONE (14:45)
[2024-04-30] MEDS ORDERED: PHENERGAN 25 TA25 MG PO (15:28)
[2024-04-30 16:00] VITALS: BP 103/71; PULSE 98
[2024-05-01] MEDS ORDERED: NORVASC2.5 MG PO (01:13)
[2024-05-01] MEDS ORDERED: PERCOCET 325 MG1 TA2 PO (01:13)
[2024-05-01] MEDS ORDERED: SEROQUEL 2525 MG/TAB PO (02:40)
[2024-05-01] MEDS ORDERED: MOTRIN 200200 MG/TAB PO (05:14)
[2024-05-05] MEDS ORDERED: DOXYCYCLINE HY100 MG PO (10:46)
== END 2024-04-30 16:00 | disposition home or self-care (01) ==
LOC: COL.ER 13:35
PROVIDERS: Personal Emergency Response Attendant
DX: R11.2 Nausea with vomiting, unspecified (principal); R19.7 Diarrhea, unspecified
CPT/HCPCS: J2550; J7030

== ENCOUNTER 2024-04-30 21:16 | Inpatient (IN) | payer MEDICAID ==
[~2024-04-30] VITALS: Ht 157.5 cm; Wt 55.7 kg
[2024-04-30] MEDS ORDERED: NS 1,000 ML IV ONE ×2 (21:45→23:15)
[2024-04-30] MEDS ORDERED: diphenhydrAMINE 50 MG/ML 1 ML VIAL IV ONE (21:45)
[2024-04-30] MEDS ORDERED: Promethazine 50 MG/ML 1 ML VIAL IM ONE (21:45)
[2024-04-30 21:55] LABS: BASO # 0.1 K/mm3 (0.0-0.2); BASO % 0.4 % (0.0-2.0); EOS # 0.1 K/mm3 (0.0-0.7); GRAN # 8.8 K/mm3 (1.4-6.5); GRAN % 72.6 % (42.2-75.2); HEMATOCRIT 43.2 % (37.0-47.0); HEMOGLOBIN 14.6 g/dl (12.5-16.0); LYMPH # 2.3 K/mm3 (1.2-3.4); LYMPH % 19.1 % (20.0-51.0); MEAN CELL VOLUME 85 fl (80.0-100.0); MEAN CORPUSCULAR HEMOGLOBIN 29 pg (27-31); MEAN CORPUSCULAR HGB CONC 34 g/dl (33.0-37.0); MEAN PLATELET VOLUME 9.9 fl (7.4-10.4); MONO # 0.8 K/mm3 (0.1-0.6); MONO % 6.4 % (1.7-9.3); PLATELET COUNT 367 K/mm3 (130-400); REDCELL DISTRIBUTION WIDTH-CV 14.4 % (11.5-14.5)
[2024-04-30] MEDS ORDERED: D5NS 1,000 ML IV ONE (22:00)
[2024-04-30 22:13] LABS: ALBUMIN 3.6 g/dL (3.5-5.0); BILIRUBIN,TOTAL 0.5 mg/dL (0.2-1.2); C-REACTIVE PROTEIN 1.77 mg/dL (0.00-0.50); CALCIUM 9.4 mg/dL (8.4-10.2); CREATININE, serum 1.71 mg/dL (0.57-1.11); POTASSIUM 3.9 mEq/L (3.5-4.5); TOTAL PROTEIN 7.9 g/dl (6.2-8.1)
[2024-05-01] VITALS (310 sets, daily range): BP systolic 78–123; BP diastolic 52–80; PULSE 79–102; TEMP 97.9–99.3; O2SAT 72–100
[2024-05-01 00:24] LABS: COLLECTION METHOD CLEAN CATCH
[2024-05-01 00:36] LABS: URINE APPEARANCE CLEAR (CLEAR/HAZY); URINE BLOOD NEGATIVE (NEGATIVE); URINE COLOR YELLOW (YELLOW); URINE GLUCOSE NEGATIVE (NEGATIVE); URINE KETONE TRACE (NEGATIVE); URINE NITRATE NEGATIVE (NEGATIVE); URINE PROTEIN(semi-quant) TRACE (NEGATIVE); URINE UROBILINOGEN 0.2 E.U/dL (0.2-1.0)
[2024-05-01 00:52] LABS: MUCOUS PRESENT (NOT PRESENT); URINE BACTERIA RARE /hpf (NONE SEEN); URINE RBC 0-2 /hpf (0-2); URINE WBC 0-2 /hpf (0-2)
[2024-05-01] MEDS ORDERED: diphenhydrAMINE 50 MG/ML 1 ML VIAL IV ONE (01:00)
[2024-05-01] MEDS ORDERED: NS 50 ML IV ONE (01:07)
[2024-05-01] MEDS ORDERED: Iohexol 300 - 100 ML VIAL IV ONE (01:07)
[2024-05-01] MEDS ORDERED: PERCOCET 325 MG1 TA2 PO (01:13)
[2024-05-01] MEDS ORDERED: NORVASC2.5 MG PO (01:13)
[2024-05-01] MEDS ORDERED: LR 1,000 ML IV SCH (02:30)
[2024-05-01] MEDS ORDERED: SEROQUEL 2525 MG/TAB PO (02:40)
[2024-05-01] MEDS ORDERED: Vasopressin 20 UNITS in NS 100 ML IV PRN (03:30)
--- NOTE | 2024-05-01 03:47 | NUR ---
Report received from TAPAN Chin at 0334 from ED. 0347 Pt arrived to ICU from ED via ED bed alongside TAPAN Chin. This RN met in room to help pt transfer from ED cart to ICU bed. Pt able to transfer to ICU bed without difficulty. Monitors attached to pt. Port accessed in ED, transparent dressing appears CDI. Pt complaining of abdominal pain at this time 01/30. Medications administered without difficulty. LR infusing to port without complications. Pt clothing placed in cabinet. Pt wearing rings on each hand and asked to keep them on. Pt states she wears dentures, but does not have them with her at the hospital and are at home. Pt does not have any questions at this time.
[2024-05-01] MEDS ORDERED: cefTRIAXone 1 G in Water For Injection,Sterile 10 ML IV SCH (04:00)
[2024-05-01] MEDS ORDERED: metroNIDAZOLE 100 ML IV SCH (04:00)
[2024-05-01] MEDS ORDERED: MOTRIN 200200 MG/TAB PO (05:14)
[2024-05-01] MEDS ORDERED: Acetaminophen 325 MG TAB PO PRN (05:45)
[2024-05-01 06:24] LABS: MAGNESIUM 1.5 mg/dL (1.6-2.6); PHOSPHOROUS 4.2 mg/dL (2.3-4.7)
--- NOTE | 2024-05-01 07:00 | NUR ---
Report received from TAPAN No; patient currently resting in bed with LR running through patient's chest port; no other meds or fluids are running at this time. Patient is on room air and there are no other lines or tubes in place this morning. Patient has been slightly hypotensive this morning, and can be tachycardic at times; other vital signs are within normal limits.
[2024-05-01] MEDS ORDERED: Pantoprazole 40 MG in NS 10 ML IV SCH (09:00)
[2024-05-01] MEDS ORDERED: Fludrocortisone 0.1 MG TAB PO SCH (09:00)
[2024-05-01] MEDS ORDERED: DULoxetine 60 MG CAP PO SCH (09:00)
[2024-05-01 09:35] LABS: TRICYCLIC ANTIDEPRESS URINE POSITIVE (NEGATIVE)
[2024-05-01] MEDS ORDERED: NS 1,000 ML IV ONE (10:00)
[2024-05-01] MEDS ORDERED: Magnesium Sulfate 4 GM/50 ML IV SOLN IV ONE (10:30)
--- NOTE | 2024-05-01 11:05 | NUR ---
Apparel Fashion Designer met with patient to discuss discharge planning. Patient lives in [place] and sees Dr. Canales for primary care. Patient gets medications from [facility] and stated she is able to drive herself to appointments and to pickers material handlers medications. Patient stated she is independent with ADLS and "very mobile". Patient does not use any DME. Patient has DPOA-HC in EMR designating her son, Porter (ph#[phone]) and brother, Chris. Patient stated she is looking forward to getting home and seeing her grandson, who is about two years old. Discharge Plan; Home
[2024-05-01 15:38] LABS: CLOSTRIDIUM DIFF A/B NEG
--- NOTE | 2024-05-01 19:33 | NUR ---
PT ON LEVOPHED AND LR. PT REQUESTING PEPSI. NO SIGN OF DISTRESS AT THIS TIME.
--- NOTE | 2024-05-01 20:42 | NUR ---
PT EATING PUDDING. PT ENCOURAGED TO DRINK WATER. PROVIDER CONTTACTED TO GET ORDER TO TITRATE LEVOPHED BY 0.01 MCG INCREMENTS.
[2024-05-01] MEDS ORDERED: QUEtiapine 25 MG TAB PO SCH (21:00)
[2024-05-01] MEDS ORDERED: Hydrocortisone 10 MG TAB PO SCH (21:00)
[2024-05-01] MEDS ORDERED: Promethazine 50 MG/ML 1 ML VIAL IM ONE (23:30)
[2024-05-02] VITALS (140 sets, daily range): BP systolic 82–115; BP diastolic 49–78; PULSE 71–93; TEMP 98.1–98.6; O2SAT 81–100
--- NOTE | 2024-05-02 00:03 | NUR ---
PT C/O NAUSEA. PT HAS HAD 2 SODAS AND 2 PUDDINGS SINCE 1900. PT ASKED FOR ANOTHER PUDDING AND NAUSEA MEDICATION. THIS NURSE SUGGESTED SHE NOT EAT IF SHE WAS NAUSEATED. PT GIVEN PHENERGAN IM.
[2024-05-02 06:34] LABS: BASO % 0.1 % (0.0-2.0); GRAN # 8.4 K/mm3 (1.4-6.5); GRAN % 83.2 % (42.2-75.2); LYMPH # 0.8 K/mm3 (1.2-3.4); LYMPH % 7.7 % (20.0-51.0); MEAN CORPUSCULAR HGB CONC 35 g/dl (33.0-37.0); MEAN PLATELET VOLUME 10.5 fl (7.4-10.4); MONO # 0.8 K/mm3 (0.1-0.6); MONO % 8.3 % (1.7-9.3); PLATELET COUNT 293 K/mm3 (130-400); RED BLOOD COUNT 3.38 M/mm3 (4.10-5.30)
[2024-05-02 06:40] LABS: HEMATOCRIT 28.4 % (37.0-47.0); HEMOGLOBIN 9.9 g/dl (12.5-16.0); MEAN CELL VOLUME 84 fl (80.0-100.0); MEAN CORPUSCULAR HEMOGLOBIN 29 pg (27-31)
[2024-05-02 06:53] LABS: CALCIUM 7.9 mg/dL (8.4-10.2); CREATININE, serum 0.95 mg/dL (0.57-1.11); POTASSIUM 3.5 mEq/L (3.5-4.5)
--- NOTE | 2024-05-02 07:00 | NUR ---
PT AMBULATING BACK TO BED INDEPENDENTLY. LEVO PLACED ON STANDBY BY THIS NURSE. RIGHT UPPER ARM PICC IN PLACE WITH LR @ 150. PT DENIES NEEDS AT THIS TIME.
[2024-05-02 07:46] LABS: THYROID STIMULATING HORMONE 0.843 uIU/mL (0.350-4.940)
--- NOTE | 2024-05-02 12:50 | NUR ---
PT REPORTS WANTING TO LEAVE AMA, PROVIDER AWARE AND SPOKE TO PT ABOUT RISKS AND BENEFITS. PT REPEATED TO THIS NURSE THAT SHE IS AWARE THAT HER BLOOD PRESSURE COULD DROP AND LEAD TO AND INSISTS THAT SHE NEEDS TO HELP MOVING WITH HER FAMILY
--- NOTE | 2024-05-02 13:41 | NUR ---
THIS NURSE REEDUCATED PT ON CONTENTS OF AMA FORM AND PT SIGNED. NO QUESTIONS AT THIS TIME. LEFT CHEST PORT HEPARINIZED BY THIS RN AND BANDAID PLACED TO SITE, PT TOLERATED WELL. RIGHT UPPER ARM PICC REMOVED BY TAPAN REED. PRESSURE HELD FOR 5 MINUTES, NO BLEEDING NOTED AND TEGADERM PLACED. PT GIVEN INSTRUCTIONS ON PICC REMOVAL CARE AND VERBALIZED UNDERSTANDING. PT ENCOURAGE TO LAY FLAT FOR 30 MINUTES AND VERBALIZED UNDERSTANDING.
--- NOTE | 2024-05-02 14:08 | NUR ---
PT ASKING TO GET DRESSED. FLAT TIME UP AND SCANT AMOUNT OF BLOOD NOTED TO PICC DRESSING. PT DENIES NEEDS, FAMILY AT BEDSIDE. PT INDEPENDENTLY DRESSED IN PERSONAL CLOTHES AND AMBUALTED TO PERSONAL VEHICLE
--- NOTE | 2024-05-03 08:47 | NUR ---
per request of Dr. Miramontes patient was called to make aware of (+) Blood Cultures. Asked the patient to come to the ER; so proper treatment and medication could be ordered. Patient verbalizes she has a lot of things to do today and is moving Wednesday. Unsure if she will be able to come in. Again encouraged patient that she needs treatment. "I will see" per patient
== END 2024-05-02 14:20 | disposition home or self-care (01) | DRG 644 ==
LOC: COL.ER 21:16 → ICU 05-01 02:23 → COL.ER 05-01 03:34 → ICU 05-01 03:34
PROVIDERS: Emergency Medicine; Nurse Practitioner Family; ADMIT Internal Medicine
DX: E27.2 Addisonian crisis (principal); E87.1 Hypo-osmolality and hyponatremia; N17.9 Acute kidney failure, unspecified; E87.20 Acidosis, unspecified; I95.9 Hypotension, unspecified; R55 Syncope and collapse; E03.9 Hypothyroidism, unspecified; N18.30 Chronic kidney disease, stage 3 unspecified; Z72.0 Tobacco use
CPT/HCPCS: C1751; J0696; J1200; J1650; J1720; J1836; J2470; J2550; J3475; J7030; J7060; J7120; Q9967